=== PATIENT | female | born 1995 | race Caucasian/White ===

== ENCOUNTER → 2018-03-30 | Outpatient (CLI) | payer OTHER ==
--- NOTE | 2018-03-30 17:49 | XR ---
PROCEDURE: XR foot complete LT - 3 views DATE AND TIME: 03/30/2018 5:34 PM REFERRING PHYSICIAN: Frankie Alonzo DO CLINICAL INDICATION: [facility], S93.402A L ankle injury TECHNIQUE: Department protocol. COMPARISON: None FINDINGS: There is no fracture or malalignment. The soft tissues are unremarkable. IMPRESSION: NO ACUTE PROCESS.
--- NOTE | 2018-03-30 17:51 | XR ---
PROCEDURE: XR ankle complete LT 3 views DATE AND TIME: 03/30/2018 5:34 PM REFERRING PHYSICIAN: Frankie Alonzo DO CLINICAL INDICATION: [facility], S93.402A L ankle injury TECHNIQUE: Department protocol. COMPARISON: None FINDINGS: There is no fracture or malalignment. Mortise is intact. The soft tissues are unremarkable. IMPRESSION: NO ACUTE PROCESS.
== END | disposition home or self-care (01) ==
LOC: RADXRMAIN 17:13
PROVIDERS: ATTEND Emergency Medicine
DX: S93.402A Sprain of unspecified ligament of left ankle, initial encounter (principal)

== ENCOUNTER → 2019-03-13 | Outpatient (CLI) | payer BC ==
--- NOTE | 2019-03-13 19:12 | US ---
EXAMINATION TYPE: US transvaginal DATE OF EXAM: 03/13/2019 COMPARISON: NONE CLINICAL HISTORY: R10.2 Pain in pelvis. pelvic pain, IUD put in place on TECHNIQUE: TV. Transvaginal sonographic images Date of LMP: 01/10/2019 EXAM MEASUREMENTS: Uterus: 6.7 x 3.2 x 2.9 cm Endometrial Stripe: 0.4 cm Right Ovary: 1.8 x 1.3 x 1.8 cm Left Ovary: 4.8 x 5.2 x 3.6 cm 1. Uterus: Anteverted wnl 2. Endometrium: IUD seen in place 3. Right Ovary: 1.2cm dominate follicle versus involuting cyst 4. Left Ovary: 4.7cm cyst seen on left ovary 5. Bilateral Adnexa: wnl 6. Posterior cul-de-sac: wnl IMPRESSION: 1. Left ovarian cyst measures 4.7 cm. Although this appears slightly short-term follow-up is recommen ded in 3 menstrual cycles to ensure resolution. 2. Shadowing intrauterine device within the central endometrial canal.
== END | disposition home or self-care (01) ==
LOC: RADUSWWP 16:16
PROVIDERS: ATTEND Family Medicine
DX: N83.202 Unspecified ovarian cyst, left side (principal); Z97.5 Presence of (intrauterine) contraceptive device
CPT/HCPCS: 76830

== ENCOUNTER → 2019-06-26 | Outpatient (CLI) | payer BC ==
--- NOTE | 2019-06-27 13:06 | US ---
EXAMINATION TYPE: US transvaginal DATE OF EXAM: 06/26/2019 COMPARISON: US CLINICAL HISTORY: N83.209 ovarian cyst. TECHNIQUE: Transvaginal (TV). Date of LMP: EXAM MEASUREMENTS: Uterus: 8.2 x 3.6 x 5.1 cm Endometrial Stripe: 0.6 cm Right Ovary: 2.3 x 1.4 x 2.9 cm Left Ovary: 4.8 x 3.2 x 4.9 cm 1. Uterus: Anteverted wnl 2. Endometrium: wnl, IUD seen in place 3. Right Ovary: wnl 4. Left Ovary: 3.8 x 3.2 x 3.6 cm cyst. This is decrease in size from the previously seen measuremen t of 4.7 cm. 5. Bilateral Adnexa: wnl 6. Posterior cul-de-sac: no free fluid IMPRESSION: 1. Decrease in size of the previously seen left ovarian cyst previously measuring up to 4.7 cm and no w measuring up to 3.8 cm confirming a benign etiology. No new suspicious ovarian lesions. 2. Appropriately placed intrauterine device.
== END | disposition home or self-care (01) ==
LOC: RADUSWWP 16:59
PROVIDERS: ATTEND Family Medicine
DX: N83.202 Unspecified ovarian cyst, left side (principal)
CPT/HCPCS: 76830

== ENCOUNTER → 2019-07-31 | Outpatient (CLI) | payer BC ==
--- NOTE | 2019-07-31 12:07 | CT ---
EXAMINATION TYPE: CT sinus wo con DATE OF EXAM: 07/31/2019 COMPARISON: None HISTORY: Chronic Sinusitis CT DLP: 547 mGycm CONTRAST: 0 mL of Isovue 300 The paranasal sinuses are examined in the axial plane at 2 mm thick sections. Reconstructed images i n the coronal plane were obtained. There is dental amalgam scatter artifact Retention cysts are within the inferior right maxillary sinus. In the anterior superior left maxillar y sinus retention cyst is present. The ethmoid air cells are clear. The sphenoid sinuses are clear. The frontal sinuses are clear. The septum is evaluated. There is septal deviation to the right. Right ostiomeatal unit is patent. Left ostiomeatal unit is obstructed. There is a left harish bullosa . IMPRESSIONS: 1. Left ostiomeatal unit obstruction. 2. Retention cysts within the maxillary sinuses larger on the right inferior aspect. 3. Right septal deviation.
== END | disposition home or self-care (01) ==
LOC: RADCTMAIN 11:34
PROVIDERS: ATTEND Otolaryngology
DX: J34.1 Cyst and mucocele of nose and nasal sinus (principal); J34.2 Deviated nasal septum
CPT/HCPCS: 70486

== ENCOUNTER 2021-07-16 06:11 | Day surgery (SDC) | payer BC ==
[2021-07-14 14:45] VITALS: BMI 34.5
[~2021-07-16 06:11] MED LIST: DEXAMETHASONE SOD PHOSPHATE 4 MG/ML 1 ML VIAL IV PRN; FAMOTIDINE 20 MG/2 ML VIAL IV PRN; ONDANSETRON 4 MG/2 ML VIAL IVP PRN
[2021-07-16] MEDS ORDERED: ONDANSETRON 4 MG/2 ML VIAL IVP ONE ×2 (06:56→10:35)
[2021-07-16] MEDS ORDERED: MIDAZOLAM 2 MG/2 ML VIAL IV PRN (06:56)
[2021-07-16] MEDS ORDERED: LIDOCAINE 1% (10MG/ML) FOR IV START INTRADERMA PRN (06:56)
[2021-07-16] MEDS ORDERED: DEXAMETHASONE SOD PHOSPHATE 4 MG/ML 1 ML VIAL IV ONE (06:56)
[2021-07-16] MEDS ORDERED: HYDROmorphone 0.5 MG/0.5 ML SYRINGE IVP PRN (07:00)
[2021-07-16] MEDS: OXYMETAZOLINE 0.05% NASL SPRAY 1 SPRAY BOTTLE EA NOSTRIL PRN ×5 (07:03→07:22)
[2021-07-16] MEDS ORDERED: SCOPOLAMINE 1.5MG/72HR PATCH TRANSDERM ONE (07:05)
[2021-07-16] MEDS: LACTATED RINGERS 1,000 ML IV SCH ×2 (07:16→07:27)
[2021-07-16] MEDS ORDERED: DEXAMETHASONE SOD PHOSPHATE 10 MG/ML 1 ML VIAL ONE (07:24)
[2021-07-16] MEDS ORDERED: SUCCINYLCHOLINE CHLORIDE 100 MG/5 ML SYR IV ONE (07:24)
[2021-07-16] MEDS ORDERED: LIDOCAINE 1% INJ 10MG/ML (20 ML MDV) ONE (07:24)
[2021-07-16] MEDS ORDERED: fentaNYL (PF) 50 MCG/ML 2 ML AMP ONE (07:24)
[2021-07-16] MEDS ORDERED: PROPOFOL 10 MG/ML 20 ML VIAL IV ONE (07:24)
[2021-07-16] MEDS ORDERED: MIDAZOLAM 2 MG/2 ML VIAL ONE (07:24)
[2021-07-16] MEDS ORDERED: LIDOCAINE 1%-EPI 1:100,000 20 ML VIAL SQ ONE ×2 (07:44)
--- NOTE | 2021-07-16 08:35 | P.OP ---
Date of Procedure: 07/16/21 Preoperative Diagnosis: Adenoid hypertrophy Deviated nasal septum Inferior turbinate hypertrophy Chronic sinusitis Postoperative Diagnosis: Same Procedure(s) Performed: Adenoidectomy Septoplasty Outfracture and submucous resection inferior turbinates Bilateral endoscopic sinus surgery including bilateral maxillary antrostomy with removal of tissue from the maxillary sinuses, left harish bullectomy partial anterior ethmoidectomy bilateral Anesthesia: QIAN Surgeon: Sonny Mosher Estimated Blood Loss (ml): 5 Pathology: other (, nasal septal bone and cartilage, sinus contents) Condition: stable Disposition: PACU Indications for Procedure: This is a 25-year-old white female who has difficulties with chronic nasal airway obstruction and congestion as well as recurrent/chronic sinusitis Operative Findings: Moderate adenoid hypertrophy, septum deviated to the right, inferior turbinate hypertrophy, obstruction of the ostium of complexes bilaterally with small polyps in the maxillary sinuses bilaterally, 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 The patient underwent induction of general anesthesia with oral endotracheal intubation without difficulty. The patient was prepped and draped in the usual aseptic fashion with the orbits in the operating field for monitoring to the case and the computed tomography scan was on the computer screen for review throughout the case. The McIvor mouth gag was placed and soft palate was palpated with no submucous cleft noted. Trachea suction catheter was placed through the right nasal cavity and pulled through the oropharynx for soft palate retraction. The adenoids were well visualized with mirror exam and due to there moderate size were ablated with suction cautery. Therefore no specimen was sent. Good hemostasis was noted and the catheter and McIvor mouthgag were removed. 1% lidocaine with 1 :100,000 epinephrine was infused submucosally into both sides of the nasal septum as well as the lateral nasal wall and anterior tips of the middle turbinates. While this was taking vasoconstrictive effect the inferior turbinates were infractured with Clay elevator and partial submucous resection of the inferior turbinates was performed with a portion of the submucosal soft tissue and the inferior turbinate bone removed with Coblation device. The inferior turbinates were then outfractured with the Clay elevator. A left hemitransfixion incision was then made with the mucoperichondrial and mucoperiosteal flap on the left elevated. The bony cartilaginous junction was disarticulated and the mucoperiosteal flap on the right was elevated. Bony nasal septal deformities were removed with Yaneli forceps and an inferior cartilaginous strip was removed leaving a full 1.5 cm caudal strut. Checking intranasally this corrected the nasoseptal deformities and the hemitransfixion incision was closed with a running 4-0 chromic suture. Full 0 endoscopic examination is performed bilaterally. Beginning on the left, the middle turbinate was medialized. There was a harish bullosa cell on the left and therefore the lateral one half of this was removed with microdebrider was completed in the harish bullectomy. The maxillary ostium was located with a ballpoint probe and an infundibulotomy was performed followed by uncinectomy. The maxillary antrostomy was enlarged at the expense of the anterior and posterior fontanelle taking care anteriorly not to injure the lacrimal bone. The maxillary sinus was evaluated with 30 and 70 endoscope .[Abnormal appearing tissue was removed from the maxillary sinus]. Partial anterior ethmoidectomy was performed. Due to To the ethmoid bulla being overhanging with the microdebrider. Attention was then turned to the right where the procedures were followed as they had been on the left other than the harish bullectomy including medialization middle turbinate infundibulotomy uncinectomy maxillary antrostomy maxillary sinus and ethmoid bullectomy/partial anterior ethmoidectomy [Nasopore nasal dressing was placed in the middle meatus bilaterally under direct visualization]. Bilateral Barros airway splints coated with bacitracin ointment were placed and sutured transseptally with a 4-0 nylon suture. The patient was suctioned in oral gastric fashion and was allowed to emerge from general anesthesia having tolerated procedure well and was extubated in the operating suite and transferred to the postoperative recovery area in satisfactory condition.
[2021-07-16 08:54] VITALS: TEMP 97.8
[2021-07-16 08:59] VITALS: RESP 16
[2021-07-16] MEDS ORDERED: oxyCODONE-APAP 7.5-325MG 1 EACH TAB ONE (09:49)
[2021-07-16] MEDS ORDERED: oxyCODONE-APAP 7.5-325MG 1 EACH TAB PO ONE (09:50)
[2021-07-16] MEDS ORDERED: hydrALAZINE HCL 20 MG/ML 1 ML VIAL ONE (10:14)
[2021-07-16] MEDS ORDERED: hydrALAZINE HCL 20 MG/ML 1 ML VIAL IV ONE (10:17)
[2021-07-16 11:18] VITALS: BP 123/82; PULSE 82
== END 2021-07-16 11:15 | disposition home or self-care (01) ==
LOC: OR 06:11
PROVIDERS: ATTEND Otolaryngology
DX: J32.9 Chronic sinusitis, unspecified (principal); J34.2 Deviated nasal septum; J35.2 Hypertrophy of adenoids; J34.3 Hypertrophy of nasal turbinates; Z72.0 Tobacco use; J45.909 Unspecified asthma, uncomplicated; F32.9 Major depressive disorder, single episode, unspecified; K21.9 Gastro-esophageal reflux disease without esophagitis; N28.9 Disorder of kidney and ureter, unspecified; E28.2 Polycystic ovarian syndrome; G43.909 Migraine, unspecified, not intractable, without status migrainosus; F41.9 Anxiety disorder, unspecified; Z98.890 Other specified postprocedural states; J04.0 Acute laryngitis; Z90.5 Acquired absence of kidney; M89.9 Disorder of bone, unspecified; Z86.79 Personal history of other diseases of the circulatory system; Z82.5 Family history of asthma and other chronic lower respiratory diseases; Z82.61 Family history of arthritis; Z82.49 Family history of ischemic heart disease and other diseases of the circulatory system; Z83.79 Family history of other diseases of the digestive system; Z83.49 Family history of other endocrine, nutritional and metabolic diseases; Z83.3 Family history of diabetes mellitus; Z83.42 Family history of familial hypercholesterolemia; Z80.3 Family history of malignant neoplasm of breast; Z80.1 Family history of malignant neoplasm of trachea, bronchus and lung; Z80.0 Family history of malignant neoplasm of digestive organs; Z79.84 Long term (current) use of oral hypoglycemic drugs; Z79.899 Other long term (current) drug therapy; Z88.5 Allergy status to narcotic agent; Z88.0 Allergy status to penicillin; Z88.2 Allergy status to sulfonamides; Z91.040 Latex allergy status
CPT/HCPCS: 81025; 88305; 88300; 30520; 42831; 31267; 31254; 30140; 31240; J2250; J0360; J1100 ×2; J2405; J0690; J2001; J3010; J0330; J2704; J1170